=== PATIENT | male | born 1980 | race Caucasian/White ===

== ENCOUNTER → 2019-10-17 | Outpatient (CLI) | payer OTHER ==
[~2019-10-17] MED LIST: ATIVAN1 MG PO; CLONAZEPAM 1 MG1 M1 PO; DOXYCYCLINE 10100 MG; FAT BLOCKER PL1 EACH; GINKGO BILOBA120 M1; LUNESTA; MECLIZINE HCL25 M1 PO; MEDROLDOSEPACK PO; SEROQUEL 100 M100 MG; XOPENEX HF1 UDINHALE IH; ZOFRAN ODT4 MG PO; [UNRECOGNIZED DRUG - OTHER]
== END ==
LOC: SJCVC 14:49
DX: R07.9 Chest pain, unspecified (principal); R06.02 Shortness of breath; R53.83 Other fatigue; R00.2 Palpitations

== ENCOUNTER → 2019-12-24 | Outpatient (CLI) | payer OTHER | LOC: CAT 11:43 → RAD 11:43 | PROVIDERS: ATTEND Pediatrics | DX: R91.1 Solitary pulmonary nodule (principal); I25.10 Atherosclerotic heart disease of native coronary artery without angina pectoris; R10.31 Right lower quadrant pain ==

== ENCOUNTER → 2019-12-28 | Outpatient (CLI) | payer OTHER | LOC: CAT 10:44 | PROVIDERS: ATTEND Family Medicine | DX: K40.90 Unilateral inguinal hernia, without obstruction or gangrene, not specified as recurrent (principal); R10.13 Epigastric pain ==

== ENCOUNTER 2021-02-18 14:51 | Emergency (ER) | payer OTHER ==
[~2021-02-18] VITALS: Ht 172.7 cm; Wt 86.2 kg
--- NOTE | 2021-02-18 15:55 | EKG ---
[place] [address] [facility] [place] [address] ELECTROCARDIOGRAM REPORT Name: GALA MOORE Room #: [facility]..#: [id number] Admission: Attend Phys: Discharge: Date of : 84 Report #: [id number] [facility] ED Test Date: 2021-02-18 Test Time: 15:02:52 Pat Name: GALA MOORE Department: Room: Gender: Buffer Operator: mary : 1980 Requested By: Randolph Singer Order Number: [id number] MD: Shaheed Will Measurements Intervals [place] Rate: 80 P: 16 NM: 125 QRS: 63 QRSD: 90 T: 33 QT: 379 QTc: 438 Interpretive Statements Sinus rhythm RSR' in V1 or V2, right VCD or RVH Compared to ECG 12/28/2013 22:42:54 Right ventricular hypertrophy now present RSR' in V1 or V2 now present Sinus bradycardia no longer present Electronically Signed On 02-18-2021 15:55:20 CDT by Shaheed Will [email or web address] <ELECTRONICALLY SIGNED> By: Shaheed Will MD, [facility] 02/18/21 1555 1502 1502 Shaheed Will MD, [facility] /EPI
[2021-02-18] MEDS ORDERED: VENTOLIN HFA 1818 GM INH (16:43)
[2021-02-18] MEDS ORDERED: SPIRIVA18 MCG INH (16:43)
[2021-02-18 17:00] VITALS: BP 110/70
== END 2021-02-18 17:00 | disposition home or self-care (01) ==
LOC: ER 14:51
PROVIDERS: Emergency Medicine
DX: J06.9 Acute upper respiratory infection, unspecified (principal); Z20.822 Contact with and (suspected) exposure to COVID-19; F31.9 Bipolar disorder, unspecified; J45.909 Unspecified asthma, uncomplicated; F17.210 Nicotine dependence, cigarettes, uncomplicated; Z98.890 Other specified postprocedural states; Z79.899 Other long term (current) drug therapy; Z88.1 Allergy status to other antibiotic agents; Z88.2 Allergy status to sulfonamides; Z88.8 Allergy status to other drugs, medicaments and biological substances

== ENCOUNTER 2021-08-10 14:43 | Inpatient (IN) | payer OTHER ==
[~2021-08-10] VITALS: Ht 172.7 cm; Wt 88.5 kg
[~2021-08-10 14:43] MED LIST changes: +SPIRIVA18 MCG INH; +VENTOLIN HFA 1818 GM INH
[2021-08-10 14:47] VITALS: BP 115/76
[2021-08-10 16:20] LABS: ABSOLUTE NEUTROPHILS 9.4 thou/uL (1.4-8.2); BASOPHILS 0.3 % (0.0-2.0); EOSINOPHILS 2.7 % (0.0-3.0); HEMATOCRIT 45.3 % (42.0-52.0); HEMOGLOBIN 15.2 gm/dL (14.0-18.0); LYMPHOCYTES 12.1 % (24.0-44.0); MCH 31.1 pg (26.0-34.0); MCHC 33.6 g/dL (28.0-37.0); MCV 92.5 fL (80.0-100.0); MONOCYTES 7.3 % (1.0-8.0); PLATELET COUNT 210 thou/uL (150-400); POLYS 77.6 % (36.0-66.0); RBC 4.89 mil/uL (4.50-6.00); RDW 12.6 % (10.5-14.5); WBC 12.1 thou/uL (4.0-11.0)
[2021-08-10 16:26] LABS: CALCIUM 9.7 mg/dL (8.5-10.1); POTASSIUM 3.6 mmol/L (3.5-5.1)
[2021-08-10 16:32] LABS: ALBUMIN 4.1 g/dL (3.4-5.0); TOTAL BILIRUBIN 0.7 mg/dL (0.2-1.0); TOTAL PROTEIN 7.2 g/dL (6.4-8.2)
[2021-08-10] MEDS ORDERED: SPIRIVA RESPIMAT4 G1 (17:35)
[2021-08-11 04:11] VITALS: BP 104/67
[2021-08-11 05:46] LABS: CALCIUM 8.6 mg/dL (8.5-10.1); CREATININE 1.1 mg/dL (0.7-1.3); POTASSIUM 3.3 mmol/L (3.5-5.1)
[2021-08-11 05:50] LABS: ABSOLUTE NEUTROPHILS 4.3 thou/uL (1.4-8.2); BASOPHILS 0.8 % (0.0-2.0); EOSINOPHILS 5.2 % (0.0-3.0); HEMATOCRIT 41.7 % (42.0-52.0); HEMOGLOBIN 14.4 gm/dL (14.0-18.0); LYMPHOCYTES 26.8 % (24.0-44.0); MCHC 34.5 g/dL (28.0-37.0); MCV 92.8 fL (80.0-100.0); MONOCYTES 10.2 % (1.0-8.0); PLATELET COUNT 185 thou/uL (150-400); RDW 12.4 % (10.5-14.5); WBC 7.5 thou/uL (4.0-11.0)
[2021-08-11 07:43] VITALS: BP 98/50
[2021-08-11 07:46] VITALS: BP 98/50
[2021-08-11] MEDS ORDERED: PROTONIX40 M2 PO (13:52)
[2021-08-11 14:07] VITALS: BP 98/50
--- NOTE | 2021-08-13 14:07 | PATH ---
[facility] [place] [address] PATHOLOGY RPT PROCEDURE Name: GALA PEREZ Room #: 170-15 DIS IN M.R.#: [id number] Admission: 08/10/21 Date of : 84 Discharge: 08/11/21 Report #: [id number] Path Case #: [id number] [facility] Accession Number: [id number] . 01 Material submitted: . PART A: stomach - ANTRUM FOR H. PYLORI PART B: esophagus - DISTAL ESOPHAGUS FOR EOE. Modifiers: distal PART C: esophagus - MID ESOPHAGUS FOR EOE. Modifiers: mid . 01 Clinical history: . NON CARDIAC CHEST PAIN ESOPHAGITIS, HIATAL HERNIA . 02 Diagnosis: A. Gastric antrum, biopsy: - Gastric antral mucosa with mild chronic inactive gastritis. - An H. pylori immunohistochemical stain is negative for H. pylori-like organisms. . B. Distal esophagus, biopsy: - Squamous mucosa with mild acute inflammation and rare eosinophils. - Negative for dysplasia or malignancy. . C. Mid esophagus, biopsy: - Squamous mucosa with surface acute inflammation and eosinophils. . (ANK:mmhansa; 08/12/2021) QL 08/12/2021 1052 Local . 02 Comment: Rare intraepithelial eosinophils are identified roughly about 0-5 eosinophils/10 HPF. Differential includes eosinophilic esophagitis versus reflux esophagitis. Recommend clinical and endoscopic correlation. . (ANK:kenney; 08/12/2021) . 02 Electronically signed: . Nery Manley MD, Pathologist NPI- [id number] . 01 Gross description: . A. The specimen is received in formalin, labeled "Gala Perez, antrum for H. pylori". Received are 2 segments of light nettles tissue measuring 0.3 and 0.4 cm in maximum dimensions. The specimen is entirely submitted in cassette A1. . B. The specimen is received in formalin, labeled "Gala Perez, [address] [address] PATHOLOGY RPT PROCEDURE Name: GALA PEREZ Room #: 170-[facility] ..#: [id number] Admission: 08/10/21 Date of : 84 Discharge: 08/11/21 Report #: [id number] Path Case #: [id number] distal esophagus for EOE". Received is a single segment of white-nettles tissue measuring 0.3 cm in maximum dimensions. The specimen is entirely submitted in cassette B1. . C. The specimen is received in formalin, labeled "Paravisini, Gala, mid esophagus for EOE". Received are 2 segments of white-nettles tissue both measuring 0.3 cm in maximum dimensions. The specimen is entirely submitted in cassette C1. ([facility]; 08/11/2021) NRI/NRI 08/11/2021 1705 Local . 02 Pathologist provided ICD-10: K29.50, K20.90 . 02 CPT . 219032, 784235, 903203, [id number] Specimen Comment: A courtesy copy of this report has been sent to [phone], [phone] Specimen Comment: [id number], Specimen Comment: Report sent to , DR RICHARD / DR GOMEZ Specimen Comment: A duplicate report has been generated due to demographic updates. Performed at: [address] [facility] [address], [place], [place] [id number] MD Thai Post MD Phone: [phone] Performed at: [address] [facility] [address] [id number] MD Nery Manley MD Phone: [phone]
== END 2021-08-11 14:39 | disposition home or self-care (01) | DRG 155 ==
LOC: ER 14:43 → EROBS 16:34
PROVIDERS: Nurse Practitioner; Physician Assistant; ADMIT Internal Medicine; ATTEND Internal Medicine
PROC: 0DB28ZX Excision of Middle Esophagus, Via Natural or Artificial Opening Endoscopic, Diagnostic (ICD-10-PCS; principal; 2021-08-11)
PROC: 0DB68ZX Excision of Stomach, Via Natural or Artificial Opening Endoscopic, Diagnostic (ICD-10-PCS; principal; 2021-08-11)
PROC: 0DB18ZX Excision of Upper Esophagus, Via Natural or Artificial Opening Endoscopic, Diagnostic (ICD-10-PCS; principal; 2021-08-11)
DX: T17.228A Food in pharynx causing other injury, initial encounter (principal); E87.1 Hypo-osmolality and hyponatremia; K20.90 Esophagitis, unspecified without bleeding; Z20.822 Contact with and (suspected) exposure to COVID-19; Z88.0 Allergy status to penicillin; Z88.8 Allergy status to other drugs, medicaments and biological substances; K44.9 Diaphragmatic hernia without obstruction or gangrene; R07.89 Other chest pain; X58.XXXA Exposure to other specified factors, initial encounter; Y93.89 Activity, other specified; Y92.89 Other specified places as the place of occurrence of the external cause; Y99.8 Other external cause status; F41.9 Anxiety disorder, unspecified; F31.9 Bipolar disorder, unspecified; Z88.2 Allergy status to sulfonamides
CPT/HCPCS: 62110; 62900; 70005